=== PATIENT | male | born 1990 | race Caucasian/White ===

== ENCOUNTER 2024-08-09 13:05 | Emergency (ER) | payer BC | END 2024-08-09 14:09 | disposition home or self-care (01) | LOC: DL.ED 13:05 | DX: S90.112A Contusion of left great toe without damage to nail, initial encounter (principal); W20.8XXA Other cause of strike by thrown, projected or falling object, initial encounter; Y93.89 Activity, other specified | CPT/HCPCS: 11740; 99283-25 ==